=== PATIENT | female | born 1945 | race Caucasian/White ===

== ENCOUNTER 2017-10-17 07:19 | Day surgery (SDC) | payer MEDICARE, SELFPAY ==
[~2017-10-17] VITALS: Ht 154.9 cm; Wt 64.8 kg
[~2017-10-17 07:19] MED LIST: ATOR10TA69 PO; B2/V1TAB PO; BIOT5000 PO; CALC600T12 PO; CYAN250014 PO; FISH1CAP49 PO; L. R1CAP3 PO; METO25TA6 PO; MV-M1TAB20 PO; SODIUM CHLORIDE 0.9% 1000ML 1,000 ML IV ONE; tumeric PO
[2017-10-17 07:34] VITALS: BP 157/68
[2017-10-17] MEDS ORDERED: MIDAZOLAM HCL 1 MG/ML 2ML VIAL ONE ×2 (08:33→08:49)
[2017-10-17] MEDS ORDERED: MEPERIDINE-PF 50 MG/ML SYG ONE (08:33)
[2017-10-17 09:07] VITALS: BP 139/62
== END 2017-10-17 09:44 | disposition home or self-care (01) ==
LOC: DAH 07:19 → ENDO 07:19
PROVIDERS: ATTEND Internal Medicine Gastroenterology
DX: Z12.11 Encounter for screening for malignant neoplasm of colon (principal); I10 Essential (primary) hypertension; E78.5 Hyperlipidemia, unspecified; E03.9 Hypothyroidism, unspecified; Z90.710 Acquired absence of both cervix and uterus; Z98.890 Other specified postprocedural states; Z79.899 Other long term (current) drug therapy; Z88.0 Allergy status to penicillin; Z80.1 Family history of malignant neoplasm of trachea, bronchus and lung; K63.89 Other specified diseases of intestine
CPT/HCPCS: A4606; G0121; J2175; J2250 ×2; J7030

== ENCOUNTER → 2018-08-28 | Outpatient (CLI) | payer OTHER ==
[~2018-08-28] MED LIST changes: -SODIUM CHLORIDE 0.9% 1000ML 1,000 ML IV ONE
== END | disposition home or self-care (01) ==
LOC: OIH 12:33
PROVIDERS: ATTEND Internal Medicine Cardiovascular Disease
DX: Z13.6 Encounter for screening for cardiovascular disorders (principal)
CPT/HCPCS: 75571